=== PATIENT | female | born 2000 | race Hispanic/Latino ===

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

== ENCOUNTER 2021-07-06 16:09 | Emergency (ER) | payer OTHER ==
[~2021-07-06] VITALS: Ht 139.7 cm; Wt 54.4 kg
[2021-07-06] MEDS ORDERED: ONDANSETRON 4MG INJ IVP ONE (16:30)
[2021-07-06] MEDS ORDERED: 0.9%NACL 1000ML 1,000 ML IV ONE (16:30)
[2021-07-06] MEDS ORDERED: MORPHINE 2 MG SYG IVP ONE (16:30)
[2021-07-06 16:47] LABS: BASOPHILS % (AUTO) 0.3 % (0.0-5.0); EOSINOPHILS % (AUTO) 1.7 % (0.0-8.0); LYMPHOCYTES % (AUTO) 27.8 % (21.0-51.0); MEAN CORPUSCULAR HEMOGLOBIN 29.4 pg (27.0-33.0); MEAN CORPUSCULAR HGB CONC 32.4 g/dL (32.0-36.0); MEAN CORPUSCULAR VOLUME 90.7 fL (80-100); MONOCYTES % (AUTO) 9.1 % (3.0-13.0); NEUTROPHILS % (AUTO) 60.9 % (40.0-77.0); PLATELET COUNT (AUTO) 296 K/uL (130-400); RED BLOOD CELL COUNT(AUTO) 4.96 MIL/uL (4.00-5.50); RED CELL DISTRIBUTION WIDTH 12.3 % (11.0-15.5); WHITE BLOOD COUNT (AUTO) 10.1 K/uL (4.8-10.8)
[2021-07-06 17:02] LABS: CREATININE 0.8 mg/dL (0.5-1.5); POTASSIUM 3.6 mmol/L (3.5-5.1)
[2021-07-06 17:06] LABS: ALBUMIN 3.9 g/dL (3.5-5.0); BILIRUBIN,TOTAL 0.2 mg/dL (0.2-1.0); TOTAL PROTEIN, SERUM 7.8 g/dL (6.0-8.3)
[2021-07-06 18:26] LABS: APPEARANCE,URINE Clear (CLEAR); BILIRUBIN,URINE Negative (NEGATIVE); COLOR,URINE Yellow (YELLOW); GLUCOSE, URINE (UA) Negative (NEGATIVE); KETONES,URINE Negative (NEGATIVE); LEUKOCYTE ESTERASE ,URINE Negative (NEGATIVE); NITRATE,URINE Negative (NEGATIVE); OCCULT BLOOD,URINE Negative (NEGATIVE); PH,URINE 6.5 (5.0-8.0); PROTEIN,URINE Negative (NEGATIVE); UROBILINOGEN,URINE 0.2 mg/dL (0.2-1.0)
[2021-07-06 18:31] LABS: HCG,QUAL RESULT NEGATIVE (NEGATIVE)
[2021-07-06 18:40] VITALS: BP 106/55
[2021-07-06] MEDS ORDERED: NAPR-1180 PO (18:42)
[2021-07-06] MEDS ORDERED: DICY20TA2 PO (18:42)
[2021-07-06] MEDS ORDERED: KETOROLAC 30MG VIAL (30MG/ML) IV ONE (19:00)
== END 2021-07-06 19:11 | disposition home or self-care (01) ==
LOC: EDH 16:09
DX: K63.89 Other specified diseases of intestine (principal); E66.9 Obesity, unspecified; Z68.27 Body mass index [BMI] 27.0-27.9, adult
CPT/HCPCS: 36415; 74176; 80053; 81003; 81025; 83690; 84703; 85025; 96361; 96374; 96375; 99284; J1885; J2405

== ENCOUNTER 2021-07-29 06:54 | Day surgery (SDC) | payer OTHER ==
[~2021-07-29 06:54] MED LIST changes: +0.9%NACL 1000ML 1,000 ML IV ONE; +ALBU8.5H8 IH; -AMOXIL; +FLUO10TA3 PO; -NAPR375T6 PO; +OMEP20CA12 PO
[2021-07-29 07:26] VITALS: BP 101/70
[2021-07-29] MEDS ORDERED: PROPOFOL 10 MG/ML 20ML VIAL IV ONE (09:00)
[2021-07-29 09:20] VITALS: BP 102/70
[2021-07-29 10:00] VITALS: BP 120/85
== END 2021-07-29 10:10 | disposition home or self-care (01) ==
LOC: DAH 06:54 → ENDO 06:54
PROVIDERS: ATTEND Internal Medicine Gastroenterology
DX: R19.4 Change in bowel habit (principal); K64.0 First degree hemorrhoids; J45.909 Unspecified asthma, uncomplicated; K38.8 Other specified diseases of appendix; Z90.89 Acquired absence of other organs; Z79.899 Other long term (current) drug therapy; Z20.822 Contact with and (suspected) exposure to COVID-19
CPT/HCPCS: 45380; 87635; A4215 ×2; A4221; A4222; A4223; A4606; A4620; A4663; C9803; J2704; J7030

== ENCOUNTER 2021-11-21 10:46 | Emergency (ER) | payer OTHER ==
[~2021-11-21] VITALS: Ht 139.7 cm; Wt 54.4 kg
[~2021-11-21 10:46] MED LIST changes: -0.9%NACL 1000ML 1,000 ML IV ONE
[2021-11-21] MEDS ORDERED: SULF1TAB42 PO (11:31)
[2021-11-21] MEDS ORDERED: CEPH500B PO (11:31)
[2021-11-21] MEDS ORDERED: ACET-2079 PO (11:32)
[2021-11-21 11:43] VITALS: BP 110/65
== END 2021-11-21 11:45 | disposition home or self-care (01) ==
LOC: EDH 10:46
DX: N76.4 Abscess of vulva (principal); Z79.899 Other long term (current) drug therapy

== ENCOUNTER 2021-12-17 15:52 | Emergency (ER) | payer OTHER ==
[~2021-12-17] VITALS: Ht 139.7 cm; Wt 54.4 kg
[~2021-12-17 15:52] MED LIST changes: +ACET-2079 PO; +CEPH500B PO; +SULF1TAB42 PO
[2021-12-17 17:33] LABS: APPEARANCE,URINE Clear (CLEAR); BILIRUBIN,URINE Negative (NEGATIVE); COLOR,URINE Yellow (YELLOW); GLUCOSE, URINE (UA) Negative (NEGATIVE); KETONES,URINE Negative (NEGATIVE); LEUKOCYTE ESTERASE ,URINE Negative (NEGATIVE); NITRATE,URINE Negative (NEGATIVE); OCCULT BLOOD,URINE Small (NEGATIVE); PH,URINE 8.5 (5.0-8.0); PROTEIN,URINE Negative (NEGATIVE); UROBILINOGEN,URINE 0.2 mg/dL (0.2-1.0)
[2021-12-17 17:43] LABS: HCG,QUAL RESULT NEGATIVE (NEGATIVE)
[2021-12-17 17:53] LABS: WBC,URINE 0-1 /HPF (0-1)
[2021-12-17 17:54] LABS: BASOPHILS % (AUTO) 0.5 % (0.0-5.0); EOSINOPHILS % (AUTO) 1.5 % (0.0-8.0); HEMATOCRIT 46.3 % (36-48); LYMPHOCYTES % (AUTO) 31.4 % (21.0-51.0); MEAN CORPUSCULAR HGB CONC 31.5 g/dL (32.0-36.0); MEAN CORPUSCULAR VOLUME 91.9 fL (80-100); MONOCYTES % (AUTO) 8.1 % (3.0-13.0); NEUTROPHILS % (AUTO) 58.3 % (40.0-77.0); PLATELET COUNT (AUTO) 283 K/uL (130-400); RED BLOOD CELL COUNT(AUTO) 5.04 MIL/uL (4.00-5.50); RED CELL DISTRIBUTION WIDTH 11.9 % (11.0-15.5); WHITE BLOOD COUNT (AUTO) 8.1 K/uL (4.8-10.8)
[2021-12-17 17:54] LABS: BACTERIA,URINE Few /HPF (None Seen); SQUAMOUS EPITHELIAL CELL,UR Few /HPF (0-2)
[2021-12-17 17:55] LABS: TRANSITIONAL EPI CELLS,URINE Rare /HPF (None Seen)
[2021-12-17] MEDS ORDERED: 0.9%NACL 1000ML 1,000 ML IV ONE (18:00)
[2021-12-17] MEDS ORDERED: DiphenhydrAMINE HCL 50 MG/ML VIAL IV ONE (18:00)
[2021-12-17] MEDS ORDERED: PROCHLORPERAZINE 10MG/2ML INJ IV ONE (18:00)
[2021-12-17 18:10] LABS: CREATININE 0.6 mg/dL (0.5-1.5); POTASSIUM 3.6 mmol/L (3.5-5.1)
[2021-12-17 18:15] LABS: ALBUMIN 4.1 g/dL (3.5-5.0); BILIRUBIN,TOTAL 0.2 mg/dL (0.2-1.0); TOTAL PROTEIN, SERUM 8.2 g/dL (6.0-8.3)
[2021-12-17 19:12] VITALS: BP 120/74
== END 2021-12-17 19:19 | disposition home or self-care (01) ==
LOC: EDH 15:52
DX: G43.909 Migraine, unspecified, not intractable, without status migrainosus (principal); Z79.899 Other long term (current) drug therapy
CPT/HCPCS: 36415; 80053; 81001; 81025; 85025; 87804 ×2; 93005; 96361; 96374; 96375; 99284; J0780; J1200; J7030

== ENCOUNTER → 2022-04-24 | Outpatient (CLI) | payer OTHER ==
[~2022-04-24] MED LIST changes: +ESOM40CA54 PO; +SUCR1ORA15 PO
[2022-04-24 10:13] LABS: BASOPHILS % (AUTO) 0.4 % (0.0-5.0); EOSINOPHILS % (AUTO) 1.4 % (0.0-8.0); HEMATOCRIT 43.5 % (36-48); LYMPHOCYTES % (AUTO) 33.1 % (21.0-51.0); MEAN CORPUSCULAR HEMOGLOBIN 29.4 pg (27.0-33.0); MEAN CORPUSCULAR HGB CONC 32.6 g/dL (32.0-36.0); MEAN CORPUSCULAR VOLUME 90.1 fL (79-99); MONOCYTES % (AUTO) 7.5 % (3.0-13.0); NEUTROPHILS % (AUTO) 57.2 % (40.0-77.0); PLATELET COUNT (AUTO) 315 K/uL (130-400); RED BLOOD CELL COUNT(AUTO) 4.83 MIL/uL (4.00-5.50); RED CELL DISTRIBUTION WIDTH 11.9 % (11.0-15.5); WHITE BLOOD COUNT (AUTO) 9.7 K/uL (4.8-10.8)
[2022-04-24 10:39] LABS: ALBUMIN 3.9 g/dL (3.5-5.0); CREATININE 0.8 mg/dL (0.5-1.5); POTASSIUM 3.7 mmol/L (3.5-5.1); THYROID STIMULATING HORMONE 2.23 uIU/mL (0.36-3.74); TOTAL PROTEIN, SERUM 7.8 g/dL (6.0-8.3)
== END | disposition home or self-care (01) ==
LOC: RAH 08:16
PROVIDERS: ATTEND Family Medicine
DX: K29.00 Acute gastritis without bleeding (principal); R10.10 Upper abdominal pain, unspecified; K59.04 Chronic idiopathic constipation; G43.001 Migraine without aura, not intractable, with status migrainosus; N94.6 Dysmenorrhea, unspecified; B35.4 Tinea corporis
CPT/HCPCS: 36415; 76700; 80053; 80061; 82150; 83690; 84443; 85025

== ENCOUNTER 2022-04-29 05:30 | Day surgery (SDC) | payer OTHER ==
[2022-04-24 13:23] VITALS: BP 104/61
[2022-04-24 13:25] LABS: BASOPHILS % (AUTO) 0.3 % (0.0-5.0); EOSINOPHILS % (AUTO) 1.3 % (0.0-8.0); HEMATOCRIT 44.1 % (36-48); LYMPHOCYTES % (AUTO) 26.9 % (21.0-51.0); MEAN CORPUSCULAR HEMOGLOBIN 29.8 pg (27.0-33.0); MEAN CORPUSCULAR HGB CONC 33.6 g/dL (32.0-36.0); MEAN CORPUSCULAR VOLUME 88.7 fL (79-99); MONOCYTES % (AUTO) 7.7 % (3.0-13.0); NEUTROPHILS % (AUTO) 63.6 % (40.0-77.0); PLATELET COUNT (AUTO) 330 K/uL (130-400); RED BLOOD CELL COUNT(AUTO) 4.97 MIL/uL (4.00-5.50); WHITE BLOOD COUNT (AUTO) 9.9 K/uL (4.8-10.8)
[2022-04-28] MEDS: CEFAZOLIN SODIUM 1 GM VIAL IVP SCH (10:00)
[~2022-04-29] VITALS: Ht 139.7 cm; Wt 54.2 kg
[2022-04-29] VITALS (18 sets, daily range): BP systolic 73–120; BP diastolic 43–83
[~2022-04-29 05:30] MED LIST changes: +CALDOLOR 800MG+NS 250ML 250 ML IV SCH; +LACTATED RINGERS 1000ML 1,000 ML IV SCH
[2022-04-29] MEDS ORDERED: BUPIVACAINE/PF 0.25% 30ML VIAL IJ ONE (06:46)
[2022-04-29] MEDS ORDERED: ROCURONIUM 10MG/1ML SYR 10 MG/ML ML ONE (06:54)
[2022-04-29] MEDS ORDERED: GLYCOPYRROLATE 1 MG/5 ML SYRINGE ONE (06:54)
[2022-04-29] MEDS ORDERED: PROPOFOL 10 MG/ML 20ML VIAL IV ONE (06:54)
[2022-04-29] MEDS ORDERED: FENTANYL CITRATE PF 50 MCG/1 ML 2ML VIAL ONE (06:55)
[2022-04-29] MEDS ORDERED: PHENYLEPHRINE HCL 10 MG/ML 1ML VIAL IV ONE (06:55)
[2022-04-29] MEDS ORDERED: MIDAZOLAM HCL 1 MG/ML 5ML VIAL ONE (07:11)
[2022-04-29] MEDS ORDERED: FAMOTIDINE 20MG VIAL IV ONE (07:12)
[2022-04-29] MEDS: CEFAZOLIN SODIUM 1 GM VIAL IVP SCH (07:20)
[2022-04-29] MEDS ORDERED: ONDANSETRON 4MG INJ ONE (07:39)
[2022-04-29] MEDS ORDERED: NEOSTIGMINE 5MG/5ML SYR IV ONE (08:04)
[2022-04-29] MEDS ORDERED: MEPERIDINE-PF 25 MG/ML SYG ONE (08:32)
== END 2022-04-29 10:30 | disposition home or self-care (01) ==
LOC: DAH 05:30
PROVIDERS: ATTEND Obstetrics & Gynecology
DX: R10.2 Pelvic and perineal pain (principal); N85.4 Malposition of uterus; K21.9 Gastro-esophageal reflux disease without esophagitis; F41.9 Anxiety disorder, unspecified; J45.909 Unspecified asthma, uncomplicated; F32.A Depression, unspecified; G43.909 Migraine, unspecified, not intractable, without status migrainosus; G47.00 Insomnia, unspecified; Z82.49 Family history of ischemic heart disease and other diseases of the circulatory system; Z83.3 Family history of diabetes mellitus; Z80.9 Family history of malignant neoplasm, unspecified; Z72.89 Other problems related to lifestyle; Z98.890 Other specified postprocedural states; Z90.89 Acquired absence of other organs
CPT/HCPCS: 84703; 85025; 86850; 86900; 86901; 87426; 36415; 49320; 81025; A4663; J7030; J7120 ×2; A4351; J3490 ×3; J3010; J0690; J2710; J2250; J2704; J2405; J2175; J2370; J1741 ×2; C1769 ×3; G0168; A4649; A4215; A4223; A4222; A4221

== ENCOUNTER 2024-01-13 10:21 | Emergency (ER) | payer OTHER ==
[~2024-01-13] VITALS: Ht 139.7 cm; Wt 57.6 kg
[~2024-01-13 10:21] MED LIST changes: -ACET-2079 PO; -ALBU8.5H8 IH; -CALDOLOR 800MG+NS 250ML 250 ML IV SCH; -CEPH500B PO; -ESOM40CA54 PO; +ESOM40CA66 PO; -FLUO10TA3 PO; -LACTATED RINGERS 1000ML 1,000 ML IV SCH; -OMEP20CA12 PO; -SULF1TAB42 PO
[2024-01-13] MEDS: 0.9%NACL 1000ML 1,000 ML IV ONE (11:04)
[2024-01-13] MEDS: CEFTRIAXONE 2GM VIAL IVPB ONE (11:04)
[2024-01-13] MEDS: ACETAMINOPHEN 500 MG TABLET PO ONE (11:05)
[2024-01-13 11:11] LABS: BASOPHILS # (AUTO) 0.03 K/uL (0.00-0.20); BASOPHILS % (AUTO) 0.3 % (0.0-5.0); EOSINOPHILS # (AUTO) 0.09 K/uL (0.00-0.70); EOSINOPHILS % (AUTO) 0.8 % (0.0-8.0); HEMATOCRIT 46.3 % (36-48); IMMATURE GRANULOCYTE ABSOLUTE 0.04 K/uL (0-1); LYMPHOCYTES # (AUTO) 0.5 K/uL (1.0-4.8); LYMPHOCYTES % (AUTO) 4.6 % (21.0-51.0); MEAN CORPUSCULAR HEMOGLOBIN 29.4 pg (27.0-33.0); MEAN CORPUSCULAR HGB CONC 34.1 g/dL (32.0-36.0); MEAN CORPUSCULAR VOLUME 86.2 fL (79-99); MONOCYTES # (AUTO) 0.8 K/uL (0.1-1.0); MONOCYTES % (AUTO) 7.3 % (3.0-13.0); NEUTROPHILS # (AUTO) 9.3 K/uL (1.8-7.7); NEUTROPHILS % (AUTO) 86.6 % (40.0-77.0); PLATELET COUNT (AUTO) 301 K/uL (130-400); RED BLOOD CELL COUNT(AUTO) 5.37 MIL/uL (4.00-5.50); RED CELL DISTRIBUTION WIDTH 12.1 % (11.0-15.5); WHITE BLOOD COUNT (AUTO) 10.7 K/uL (4.8-10.8)
[2024-01-13 11:16] LABS: APPEARANCE,URINE CLEAR (CLEAR); BILIRUBIN,URINE NEGATIVE (NEGATIVE); COLOR,URINE LIGHT-YELLOW (YELLOW); GLUCOSE, URINE (UA) NEGATIVE (NEGATIVE); KETONES,URINE NEGATIVE (NEGATIVE); LEUKOCYTE ESTERASE ,URINE NEGATIVE Leu/uL (NEGATIVE); NITRATE,URINE NEGATIVE (NEGATIVE); OCCULT BLOOD,URINE SMALL (NEGATIVE); PH,URINE 5.5 (5.0-8.0); PROTEIN,URINE NEGATIVE (NEGATIVE); UROBILINOGEN,URINE 0.2 mg/dL (0.2-1.0)
[2024-01-13 11:20] LABS: CREATININE 0.9 mg/dL (0.5-1.0); POTASSIUM 3.8 mmol/L (3.5-5.1)
[2024-01-13 11:20] LABS: ADD UA MICROSCOPIC YES
[2024-01-13 11:21] LABS: BACTERIA,URINE RARE /HPF (None Seen); MUCUS,URINE RARE LPF (None Seen); SQUAMOUS EPITHELIAL CELL,UR FEW /HPF (0-2)
[2024-01-13 11:25] LABS: ALBUMIN 4.3 g/dL (3.5-5.0); BILIRUBIN,TOTAL 0.2 mg/dL (0.2-1.0); TOTAL PROTEIN, SERUM 8.4 g/dL (6.0-8.3)
[2024-01-13] MEDS ORDERED: OSEL75 PO (11:45)
[2024-01-13 11:53] VITALS: TEMP 99.6
[2024-01-13 11:55] VITALS: BP 120/77; PULSE 126; RESP 17; O2SAT 99
== END 2024-01-13 12:09 | disposition home or self-care (01) ==
LOC: EDH 10:21
DX: J10.1 Influenza due to other identified influenza virus with other respiratory manifestations (principal); R50.9 Fever, unspecified; G43.909 Migraine, unspecified, not intractable, without status migrainosus; Z20.822 Contact with and (suspected) exposure to COVID-19
CPT/HCPCS: 99284; 96365; 87426; 80053; 84703; 85025; 87040 ×2; 83605; 81001; 36415; J0696